=== PATIENT | female | born 1940 | race Caucasian/White ===

== ENCOUNTER 2019-09-03 02:18 | Emergency (ER) | payer MEDICARE, BC ==
[2019-09-03 02:24] VITALS: RESP 18; TEMP 97.6
[2019-09-03] MEDS ORDERED: FAMOTIDINE 20 MG/2 ML VIAL IV STA (02:37)
[2019-09-03] MEDS ORDERED: SODIUM CHLORIDE 0.9% 500 ML 500 ML IV STA (02:37)
--- NOTE | 2019-09-03 02:40 | ED ---
General Adult HPI - General Source: patient, EMS Mode of arrival: EMS Limitations: no limitations <Emma Kelsey - Last Filed: 09/03/19 04:29> <Dayanna Ledbetter - Last Filed: 09/03/19 05:26> - General Chief complaint: Chest Pain Stated complaint: Chest Pain Time Seen by Provider: 09/03/19 02:24 - History of Present Illness Initial comments: 78 year-old female patient presents to the emergency department today for evaluation of chest discomfort. Patient states she's been having vomiting and diarrhea since yesterday. Patient states this evening she developed some discomfort to her chest. Denies any shortness of breath. States she has been sweaty and clammy. States she is feeling dizzy and weak. Denies any hematochezia, melena, or hematemesis. Denies any significant abdominal pain. Denies fever or chills. Denies any recent travel or sick contacts. Has had tubal ligation to her abdomen but no other surgeries. She does have history of TIA and hypertension. Patient denies any recent rash, abdominal pain, back pain, numbness, tingling, dizziness, weakness, hematuria, dysuria, urinary urgency, urinary frequency, headache, visual changes, or any other complaints. (Emma Kelsey) Review of Systems ROS Other: All systems not noted in ROS Statement are negative. <Emma Kelsey - Last Filed: 09/03/19 04:29> ROS Other: All systems not noted in ROS Statement are negative. <Dayanna Ledbetter - Last Filed: 09/03/19 05:26> ROS Statement: Those systems with pertinent positive or pertinent negative responses have been documented in the HPI. Past Medical History Past Medical History: CVA/TIA, Hypertension Additional Past Medical History / Comment(s): "mini strokes" Past Surgical History: Hysterectomy Smoking Status: Never smoker Past Alcohol Use History: None Reported Past Drug Use History: None Reported <Emma Kelsey - Last Filed: 09/03/19 04:29> General Exam Limitations: no limitations General appearance: alert, in no apparent distress, other (This is a well-developed, well-nourished elderly female patient in no acute distress. Vital signs upon presentation are temperature 97.6F, pulse 94, respirations 18, blood pressure 106/74, pulse ox 100% on room air.) Eye exam: Present: normal appearance, PERRL, EOMI. Absent: scleral icterus, c onjunctival injection, periorbital swelling ENT exam: Present: normal exam, normal oropharynx, mucous membranes moist Respiratory exam: Present: normal lung sounds bilaterally. Absent: respiratory distress, wheezes, rales, rhonchi, stridor Cardiovascular Exam: Present: regular rate, normal rhythm, normal heart sounds. Absent: systolic murmur, diastolic murmur, rubs, gallop, clicks GI/Abdominal exam: Present: soft, normal bowel sounds. Absent: distended, tenderness, guarding, rebound, rigid Neurological exam: Present: alert, oriented X3, CN II-XII intact Psychiatric exam: Present: normal affect, normal mood Skin exam: Present: warm, dry, intact, normal color. Absent: rash <Emma Kelsey M - Last Filed: 09/03/19 04:29> Course Vital Signs 09/03/19 09/03/19 09/03/19 02:19 04:12 05:14 Temperature 97.6 F Pulse Rate 94 74 80 Respiratory 18 18 18 Rate Blood Pressure 106/74 109/73 126/67 O2 Sat by Pulse 100 100 98 Oximetry EKG Findings - EKG Comments: EKG Findings:: EKG obtained at 12 oh 29 shows normal sinus rhythm with a ventricular rate of 90, NC interval 148, QRS duration 94, QT 372, QTc 455. No evidence of ST elevation or depression. <Emma Kelsey M - Last Filed: 09/03/19 04:29> Medical Decision Making - Lab Data Result diagrams: 09/03/19 02:52 09/03/19 02:52 <Emma Kelsey - Last Filed: 09/03/19 04:29> - Lab Data Result diagrams: 09/03/19 02:52 09/03/19 02:52 <Dayanna Ledbetter - Last Filed: 09/03/19 05:26> - Medical Decision Making Patient was initially seen and evaluated by a Emma Kelsey [employer]. Patient had nausea and vomiting was somewhat hypotensive. After IV fluids patient's feeling much better she is ambulating independently around the emergency department with no symptoms. I discussed with patient options for observation for further management versus discharge home patient stated adamantly that she would be going home that she is feeling much better. (Dayanna Ledbetter) - Lab Data Lab Results 09/03/19 09/03/19 09/03/19 Range/Units 02:52 02:52 02:52 WBC 4.6 (3.8-10.6) k/uL RBC 4.89 (3.80-5.40) m/uL Hgb 15.1 (11.4-16.0) gm/dL Hct 44.8 (34.0-46.0) % MCV 91.5 (80.0-100.0) fL MCH 30.9 (25.0-35.0) pg MCHC 33.7 (31.0-37.0) g/dL RDW 12.9 (11.5-15.5) % Plt Count 284 (150-450) k/uL Neutrophils % 63 % Lymphocytes % 20 % Monocytes % 10 % Eosinophils % 4 % Basophils % 1 % Neutrophils # 2.9 (1.3-7.7) k/uL Lymphocytes # 0.9 L (1.0-4.8) k/uL Monocytes # 0.5 (0-1.0) k/uL Eosinophils # 0.2 (0-0.7) k/uL Basophils # 0.0 (0-0.2) k/uL PT 10.3 (9.0-12.0) sec INR 1.0 (<1.2) APTT 16.9 L (22.0-30.0) sec Sodium 140 (137-145) mmol/L Potassium 3.7 (3.5-5.1) mmol/L Chloride 110 H (98-107) mmol/L Carbon Dioxide 16 L (22-30) mmol/L Anion Gap 14 mmol/L BUN 45 H (7-17) mg/dL Creatinine 1.04 (0.52-1.04) mg/dL Est GFR (CKD-EPI)AfAm 61 (>60 ml/min/1.73 sqM) Est GFR (CKD-EPI)NonAf 53 (>60 ml/min/1.73 sqM) Glucose 159 H (74-99) mg/dL Calcium 11.0 H (8.4-10.2) mg/dL Magnesium 2.3 (1.6-2.3) mg/dL Total Bilirubin 0.8 (0.2-1.3) mg/dL AST 23 (14-36) U/L ALT 16 (4-34) U/L Alkaline Phosphatase 83 (38-126) U/L Troponin I (0.000-0.034) ng/mL Total Protein 8.2 (6.3-8.2) g/dL Albumin 5.1 H (3.5-5.0) g/dL Lipase 74 (23-300) U/L 09/03/19 Range/Units 02:52 WBC (3.8-10.6) k/uL RBC (3.80-5.40) m/uL Hgb (11.4-16.0) gm/dL Hct (34.0-46.0) % MCV (80.0-100.0) fL MCH (25.0-35.0) pg MCHC (31.0-37.0) g/dL RDW (11.5-15.5) % Plt Count (150-450) k/uL Neutrophils % % Lymphocytes % % Monocytes % % Eosinophils % % Basophils % % Neutrophils # (1.3-7.7) k/uL Lymphocytes # (1.0-4.8) k/uL Monocytes # (0-1.0) k/uL Eosinophils # (0-0.7) k/uL Basophils # (0-0.2) k/uL PT (9.0-12.0) sec INR (<1.2) APTT (22.0-30.0) sec Sodium (137-145) mmol/L Potassium (3.5-5.1) mmol/L Chloride (98-107) mmol/L Carbon Dioxide (22-30) mmol/L Anion Gap mmol/L BUN (7-17) mg/dL Creatinine (0.52-1.04) mg/dL Est GFR (CKD-EPI)AfAm (>60 ml/min/1.73 sqM) Est GFR (CKD-EPI)NonAf (>60 ml/min/1.73 sqM) Glucose (74-99) mg/dL Calcium (8.4-10.2) mg/dL Magnesium (1.6-2.3) mg/dL Total Bilirubin (0.2-1.3) mg/dL AST (14-36) U/L ALT (4-34) U/L Alkaline Phosphatase (38-126) U/L Troponin I <0.012 (0.000-0.034) ng/mL Total Protein (6.3-8.2) g/dL Albumin (3.5-5.0) g/dL Lipase (23-300) U/L Disposition Is patient prescribed a controlled substance at d/c from ED?: No <Emma Kelsey M - Last Filed: 09/03/19 04:29> Is patient prescribed a controlled substance at d/c from ED?: No <Dayanna Ledbetter - Last Filed: 09/03/19 05:26> Clinical Impression: Vomiting and diarrhea Disposition: HOME SELF-CARE Condition: Good Instructions (If sedation given, give patient instructions): Acute Nausea and Vomiting (ED), Acute Diarrhea (ED) Additional Instructions: Start with clear liquid diet and advance as tolerated. Take nausea medication as needed for continued symptoms. Return to the emergency department for any new, worsening, or concerning symptoms. Referrals: Nonstaff,Physician [REFERRING] - 1-2 days
[2019-09-03 03:02] LABS: Basophils % (A) 1 %; Eosinophils # (A) 0.2 k/uL (0-0.7); Eosinophils % (A) 4 %; HCT 44.8 % (34.0-46.0); HGB 15.1 gm/dL (11.4-16.0); Lymphocytes # (A) 0.9 k/uL (1.0-4.8); Lymphocytes % (A) 20 %; MCH 30.9 pg (25.0-35.0); MCHC 33.7 g/dL (31.0-37.0); MCV 91.5 fL (80.0-100.0); Mean Platelet Volume 7.6; Monocytes # (A) 0.5 k/uL (0-1.0); Monocytes % (A) 10 %; Neutrophils # (A) 2.9 k/uL (1.3-7.7); Neutrophils % (A) 63 %; Platelet Count 284 k/uL (150-450); RBC 4.89 m/uL (3.80-5.40); RDW 12.9 % (11.5-15.5); WBC 4.6 k/uL (3.8-10.6)
--- NOTE | 2019-09-03 03:02 | XR ---
EXAMINATION TYPE: XR chest 2V DATE OF EXAM: 09/03/2019 COMPARISON: NONE HISTORY: Chest pain TECHNIQUE: FINDINGS: Heart and mediastinum are normal. Lungs are clear of infiltrate. There are small scattered calcified pulmonary granulomata. There is spurring in the thoracic spine. Costophrenic angles are nakia ar. IMPRESSION: No active cardiopulmonary disease. Normal heart.
[2019-09-03 03:16] LABS: Prothrombin Time 10.3 sec (9.0-12.0)
[2019-09-03 03:18] LABS: Partial Thromboplastin Time 16.9 sec (22.0-30.0)
[2019-09-03 03:27] LABS: Albumin 5.1 g/dL (3.5-5.0); Magnesium 2.3 mg/dL (1.6-2.3); Potassium 3.7 mmol/L (3.5-5.1); Total Bilirubin 0.8 mg/dL (0.2-1.3); Total Protein 8.2 g/dL (6.3-8.2)
[2019-09-03] MEDS ORDERED: ONDANSETRON 4 MG/2 ML VIAL IVP STA (03:54)
[2019-09-03] MEDS ORDERED: SODIUM CHLORIDE 0.9% 1,000 ML IV ONE (03:54)
[2019-09-03] MEDS ORDERED: ONDANSETRON 4 MG ODT STARTER PACK 2 TAB BTL PO STA (04:29)
[2019-09-03] MEDS ORDERED: LOPERAMIDE 2 MG CAP PO STA (04:30)
[2019-09-03 05:14] VITALS: BP 126/67; PULSE 80
== END 2019-09-03 05:37 | disposition home or self-care (01) ==
LOC: EC 02:18
DX: R11.2 Nausea with vomiting, unspecified (principal); R19.7 Diarrhea, unspecified; R07.89 Other chest pain; R42 Dizziness and giddiness; R53.1 Weakness
CPT/HCPCS: 36415; 93005; 80053; 83690; 83735; 84484; 85025; 85610; 85730; 71046; 99285; 96374; 96375; 96361; J2405; S0119

== ENCOUNTER 2021-05-28 11:00 | Inpatient (IN) | payer MEDICARE, BC ==
[2021-05-28] MEDS ORDERED: SODIUM CHLORIDE 0.9% 500 ML 500 ML IV STA (11:32)
[2021-05-28 12:06] LABS: Basophils % (A) 0 %; Eosinophils # (A) 0.1 k/uL (0-0.7); Eosinophils % (A) 2 %; HCT 40.9 % (34.0-46.0); HGB 13.8 gm/dL (11.4-16.0); Lymphocytes % (A) 17 %; MCH 30.5 pg (25.0-35.0); MCHC 33.7 g/dL (31.0-37.0); MCV 90.8 fL (80.0-100.0); Mean Platelet Volume 7.3; Monocytes # (A) 0.3 k/uL (0-1.0); Monocytes % (A) 5 %; Neutrophils # (A) 4.4 k/uL (1.3-7.7); Neutrophils % (A) 74 %; Platelet Count 250 k/uL (150-450); RBC 4.51 m/uL (3.80-5.40); RDW 12.7 % (11.5-15.5)
[2021-05-28 12:20] LABS: Appearance,Urine Clear (Clear); Bilirubin,Urine Negative (Negative); Blood,Urine Negative (Negative); Color,Urine Light Yellow; Glucose,Urine (UA) Negative (Negative); Ketones,Urine Negative (Negative); Leukocyte Esterase,Urine Negative (Negative); Nitrite,Urine Negative (Negative); Protein,Urine Negative (Negative); Specific Gravity,Urine 1.007 (1.001-1.035); Urobilinogen,Urine <2.0 mg/dL (<2.0)
[2021-05-28 12:21] LABS: Albumin 4.3 g/dL (3.5-5.0); Calcium 9.9 mg/dL (8.4-10.2); Potassium 4.1 mmol/L (3.5-5.1); Total Bilirubin 0.6 mg/dL (0.2-1.3)
--- NOTE | 2021-05-28 12:24 | ED ---
General Adult HPI - General Chief complaint: Neuro Symptoms/Deficit Stated complaint: TIA Time Seen by Provider: 05/28/21 11:17 Source: patient, EMS Mode of arrival: EMS Limitations: no limitations - History of Present Illness Initial comments: 80-year-old female patient presents to the emergency department for evaluation after having a 2 hour episode of confusion and inability to speak. Patient states around 9:30 this morning she developed "wavy vision" and garbled speech. States she felt very confused and forgot how to use her phone, she was unable to call for help. States the episode lasted approximately 2 hours when symptoms started to clear and she was able to call an ambulance. Patient states that she has had symptoms similar to this in the past but never lasting longer than 20 minutes. States that first episode was approximately 6 years ago, she was diagnosed with TIA. Evaluated at [facility] in [place]. Patient states she has some remaining visual disturbance and feels like her speech is not completely normal. She states she had some tingling to the fingers on the left hand, this was a new symptom. She states she was still able to move her extremities like normal. She denies any chest pain or shortness of breath. Denies headache. States she did have some dizziness with this. States she was started on Plavix approximately a month ago for these episodes. Patient denies any recent rash, fever, chills, cough, abdominal pain, nausea, vomiting, diarrhea, constipation, back pain, hematuria, dysuria, urinary urgency, urinary frequency, or any other complaints. She was recently diagnosed with bilateral ear infection and UTI. Had to stop the antibiotic yesterday because of bilateral leg cramping and tightness. - Related Data Allergies Allergy/AdvReac Type Severity Reaction Status Date / Time Sulfa (Sulfonamide Allergy Rash/Hives Verified 05/28/21 11:08 Antibiotics) Review of Systems ROS Statement: Those systems with pertinent positive or pertinent negative responses have been documented in the HPI. ROS Other: All systems not noted in ROS Statement are negative. Past Medical History Past Medical History: CVA/TIA, Hypertension Additional Past Medical History / Comment(s): "mini strokes" Past Surgical History: Hysterectomy Past Alcohol Use History: None Reported Past Drug Use History: None Reported General Exam Limitations: no limitations General appearance: alert, in no apparent distress, other (This is a well- developed, well-nourished elderly female patient in no acute distress. Vital signs upon presentation are temperature 97.8F, pulse 72, respirations 18, blood pressure 177/90, pulse ox 98% on room air.) Eye exam: Present: normal appearance, PERRL, EOMI. Absent: scleral icterus, conjunctival injection, nystagmus, periorbital swelling ENT exam: Present: normal exam, normal oropharynx, mucous membranes moist Respiratory exam: Present: normal lung sounds bilaterally. Absent: respiratory distress, wheezes, rales, rhonchi, stridor Cardiovascular Exam: Present: regular rate, normal rhythm, normal heart sounds. Absent: systolic murmur, diastolic murmur, rubs, gallop, clicks GI/Abdominal exam: Present: soft, normal bowel sounds. Absent: distended, tenderness, guarding, rebound, rigid Neurological exam: Present: alert, oriented X3, CN II-XII intact, other (NIHHS 0) Expanded Speech: Present: fluid speech Cranial nerves: EOM's Intact: Normal, Tongue Deviation: Normal, Nystagmus: Normal, Facial Sensation: Normal Motor strength exam: RUE: 5, LUE: 5, RLE: 5, LLE: 5 Psychiatric exam: Present: normal affect, normal mood Skin exam: Present: warm, dry, intact, normal color. Absent: rash Course Vital Signs 05/28/21 11:02 Temperature 97.8 F Pulse Rate 72 Respiratory 18 Rate Blood Pressure 177/90 O2 Sat by Pulse 98 Oximetry Medical Decision Making - Medical Decision Making 80-year-old female patient with past medical history significant for hypertension and TIA presents to the emergency department today for evaluation after having a 2 hour episode of garbled speech, left hand tingling, and confusion. Patient symptoms had cleared by the time she arrived to the emergency department. NIH was 0. Labs reviewed and were unremarkable. CT brain showed chronic changes nothing acute. Chest x-ray negative. EKG was unremarkable. Patient symptoms are consistent with TIA. She'll be admitted to the hospital for further evaluation by neurology. I did discuss findings, results, and plan with the patient she is agreeable. Case discussed with my attending Dr. Suarez. - Lab Data Result diagrams: 05/28/21 11:56 05/28/21 11:56 Lab Results 05/28/21 05/28/2121 Range/Units 11:56 11:56 11:56 WBC 6.0 (3.8-10.6) k/uL RBC 4.51 (3.80-5.40) m/uL Hgb 13.8 (11.4-16.0) gm/dL Hct 40.9 (34.0-46.0) % MCV 90.8 (80.0-100.0) fL MCH 30.5 (25.0-35.0) pg MCHC 33.7 (31.0-37.0) g/dL RDW 12.7 (11.5-15.5) % Plt Count 250 (150-450) k/uL MPV 7.3 Neutrophils % 74 % Lymphocytes % 17 % Monocytes % 5 % Eosinophils % 2 % Basophils % 0 % Neutrophils # 4.4 (1.3-7.7) k/uL Lymphocytes # 1.0 (1.0-4.8) k/uL Monocytes # 0.3 (0-1.0) k/uL Eosinophils # 0.1 (0-0.7) k/uL Basophils # 0.0 (0-0.2) k/uL PT 11.0 (9.0-12.0) sec INR 1.0 (<1.2) APTT 22.1 (22.0-30.0) sec Sodium (137-145) mmol/L Potassium (3.5-5.1) mmol/L Chloride (98-107) mmol/L Carbon Dioxide (22-30) mmol/L Anion Gap mmol/L BUN (7-17) mg/dL Creatinine (0.52-1.04) mg/dL Est GFR (CKD-EPI)AfAm (>60 ml/min/1.73 sqM) Est GFR (CKD-EPI)NonAf (>60 ml/min/1.73 sqM) Glucose (74-99) mg/dL Plasma Lactic Acid Yimi (0.7-2.0) mmol/L Calcium (8.4-10.2) mg/dL Total Bilirubin (0.2-1.3) mg/dL AST (14-36) U/L ALT (4-34) U/L Alkaline Phosphatase (38-126) U/L Troponin I (0.000-0.034) ng/mL Total Protein (6.3-8.2) g/dL Albumin (3.5-5.0) g/dL Urine Color Light Yellow Urine Appearance Clear (Clear) Urine pH 7.0 (5.0-8.0) Ur Specific [place] 1.007 (1.001-1.035) Urine Protein Negative (Negative) Urine Glucose (UA) Negative (Negative) Urine Ketones Negative (Negative) Urine Blood Negative (Negative) Urine Nitrite Negative (Negative) Urine Bilirubin Negative (Negative) Urine Urobilinogen <2.0 (<2.0) mg/dL Ur Leukocyte Esterase Negative (Negative) 05/28/21 05/28/21 05/28/21 Range/Units 11:56 11:56 11:56 WBC (3.8-10.6) k/uL RBC (3.80-5.40) m/uL Hgb (11.4-16.0) gm/dL Hct (34.0-46.0) % MCV (80.0-100.0) fL MCH (25.0-35.0) pg MCHC (31.0-37.0) g/dL RDW (11.5-15.5) % Plt Count (150-450) k/uL MPV Neutrophils % % Lymphocytes % % Monocytes % % Eosinophils % % Basophils % % Neutrophils # (1.3-7.7) k/uL Lymphocytes # (1.0-4.8) k/uL Monocytes # (0-1.0) k/uL Eosinophils # (0-0.7) k/uL Basophils # (0-0.2) k/uL PT (9.0-12.0) sec INR (<1.2) APTT (22.0-30.0) sec Sodium 137 (137-145) mmol/L Potassium 4.1 (3.5-5.1) mmol/L Chloride 103 (98-107) mmol/L Carbon Dioxide 23 (22-30) mmol/L Anion Gap 11 mmol/L BUN 15 (7-17) mg/dL Creatinine 0.78 (0.52-1.04) mg/dL Est GFR (CKD-EPI)AfAm 85 (>60 ml/min/1.73 sqM) Est GFR (CKD-EPI)NonAf 73 (>60 ml/min/1.73 sqM) Glucose 106 H (74-99) mg/dL Plasma Lactic Acid Yimi 1.0 (0.7-2.0) mmol/L Calcium 9.9 (8.4-10.2) mg/dL Total Bilirubin 0.6 (0.2-1.3) mg/dL AST 24 (14-36) U/L ALT 17 (4-34) U/L Alkaline Phosphatase 87 (38-126) U/L Troponin I <0.012 (0.000-0.034) ng/mL Total Protein 7.0 (6.3-8.2) g/dL Albumin 4.3 (3.5-5.0) g/dL Urine Color Urine Appearance (Clear) Urine pH (5.0-8.0) Ur Specific [place] (1.001-1.035) Urine Protein (Negative) Urine Glucose (UA) (Negative) Urine Ketones (Negative) Urine Blood (Negative) Urine Nitrite (Negative) Urine Bilirubin (Negative) Urine Urobilinogen (<2.0) mg/dL Ur Leukocyte Esterase (Negative) - Radiology Data Radiology results: report reviewed, image reviewed CT brain without contrast was obtained. Report was reviewed in its entirety. Impression by Dr. Delong shows no acute intracranial hemorrhage or midline shift. There is midline diffuse cerebral atrophy and mild chronic small vessel ischemic change noted. Two-view x-ray of the chest is obtained. Report was reviewed in its entirety. Impression by Dr. Delong shows chronic changes and mild cardiomegaly without acute pulmonary process. Disposition Clinical Impression: TIA (transient ischemic attack) Disposition: ADMITTED IP TO THIS [facility] Condition: Serious Referrals: Kennedy De Anda MD [Primary Care Provider] - 1-2 days Decision to Admit Reason: Admit from EC Decision Date: 05/28/21 Decision Time: 13:26
[2021-05-28 12:26] LABS: Partial Thromboplastin Time 22.1 sec (22.0-30.0)
--- NOTE | 2021-05-28 12:28 | XR ---
EXAMINATION TYPE: XR chest 2V DATE OF EXAM: 05/28/2021 COMPARISON: Chest x-ray September 03, 2019 HISTORY: Altered mental status and weakness. TECHNIQUE: Frontal and lateral views of the chest are obtained. FINDINGS: There is chronic painful changes bilaterally without suspicious focal air space opacity, p leural effusion, or pneumothorax seen. The cardiac silhouette size is stable and mildly enlarged. Mu ltilevel spurring in thoracic spine redemonstrated. Overlying EKG leads Omni current study incidental ly noted. IMPRESSION: Chronic changes and mild cardiomegaly without acute pulmonary process.
--- NOTE | 2021-05-28 12:29 | CT ---
EXAMINATION TYPE: CT brain wo con DATE OF EXAM: 05/28/2021 HISTORY: History of TIA, Neuro deficit x [address] DLP: 1099.4 mGycm. Automated Exposure Control for Dose Reduction was Utilized. TECHNIQUE: CT scan of the head is performed without contrast. COMPARISON: None. FINDINGS: There is no acute intracranial hemorrhage or midline shift identified. There is mild diff use ventricular and sulcal prominence consistent with diffuse age-related cerebral atrophy. Hyperosto sis frontalis bilaterally. There is mild low-attenuation in the periventricular white matter consiste nt with chronic small vessel ischemic change. The globes are intact and the visualized sinuses are c lear. IMPRESSION: No acute intracranial hemorrhage or midline shift. There is mild diffuse cerebral atrop hy and mild chronic small vessel ischemic change noted.
[2021-05-28] MEDS ORDERED: NALOXONE 0.4 MG/ML 1 ML VIAL IV PRN (13:19)
[2021-05-28] MEDS ORDERED: polyethylene glycoL 3350 17 GM POWD.PACK PO PRN (14:13)
[2021-05-28] MEDS ORDERED: ALPRAZolam 0.25 MG TAB PO PRN (14:13)
[2021-05-28] MEDS ORDERED: CLOPIDOGREL 75 MG TAB PO STA (14:21)
[2021-05-28] MEDS ORDERED: LOSARTAN 50 MG TAB PO STA (14:24)
--- NOTE | 2021-05-28 14:42 | CT ---
EXAMINATION TYPE: CT angio head neck DATE OF EXAM: 05/28/2021 COMPARISON: None HISTORY: Weakness CT DLP: mGycm Automated exposure control for dose reduction was used. CONTRAST: The contrast was Isovue 65 mL. There are 3-D post processed images. Images obtained from the aortic arch to the vertex of the brain. FINDINGS: There is normal branching pattern of the great vessels on the aortic arch. There is arterial flow in both subclavian arteries. There is arterial flow in the common internal and external carotid arteries bilaterally. There is wide patency of the carotid artery bifurcations. There is arterial flow in bot h vertebral arteries. There is arterial flow in the vertebrobasilar artery system. There is no eviden ce of carotid or vertebral artery aneurysm or dissection. There is arterial flow in the anterior middle and posterior cerebral arteries. There is no evidence o f intracranial aneurysm or neovascularity. There is no mass effect. I see no evidence of intracranial hemodynamic stenosis. There is normal enhancement of the venous sinuses. IMPRESSION: Negative CT angiogram of the neck. Negative CT angiogram of the brain.
[2021-05-28] MEDS: ACETAMINOPHEN TAB 325 MG TAB PO PRN ×2 (14:53→22:02)
[2021-05-28] MEDS ORDERED: LEVOTHYROXINE 75 MCG TAB PO SCH (21:00)
[2021-05-29 00:10] VITALS: RESP 16
[2021-05-29] MEDS ORDERED: PANTOPRAZOLE 40 MG TABLET PO SCH (09:00)
[2021-05-29] MEDS ORDERED: ATORVASTATIN 10 MG TAB PO SCH (09:00)
[2021-05-29] MEDS ORDERED: LOSARTAN 50 MG TAB PO SCH (09:00)
[2021-05-29] MEDS ORDERED: PROPRANOLOL 20 MG TAB PO SCH (09:45)
--- NOTE | 2021-05-29 09:59 | P.CNNES ---
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 Patient states that the first time it happened was 5-6 years ago when she developed the zigzag lines in her vision, associated with difficulty speaking, couldn't read. She was taken to [facility] where she stayed overnight. They did "all kinds of tests" including MRI, EEG and all tests came back negative. Subsequently she started having these episodes occurring every 2 or 3 months, each time lasting for 20 minutes. She can always feels it coming on, when it always starts with appearance of zigzag lines in her vision, then she cannot read, sometime she can speak, sometimes she cannot. If she tries to speak "I am hungry", only some non-intelligible sounds, like "Aan Aan Aan". There is no facial droop. She does feel generalized weak, but no focal weakness. The episodes typically last for 20 minutes and then passes. Purnima goins was started on Plavix with her last episode about a few months ago. Patient states she had an MRI of the brain done about a month ago at outside facility, which was reportedly normal. Patient says that she had some headache now, but she has some cold and sinus issues. Patient called the ambulance and when they arrived, patient was alert and oriented 4. Her blood pressure was 172/88, pulse rate 72, saturation 98%, and blood sugar was 117. When patient arrived, her symptoms had completely resolved. Her blood pressure is still high when she arrived. At present she feels fine and wants to go home. Patient is a nonsmoker, does not drink. She has hypertension but denies diabetes. Patient denies any history of migraines. She has history of sinus headaches, which she used to get "all the time", but now has gone away. She denies any nausea vomiting light or noise sensitivity with those headaches. Review of Systems States she had recent ear infections bilaterally. Has chronic sinus issues off and on. Denies any focal numbness tingling weakness. No chest pain or abdominal pain nausea vomiting diarrhea. She does have some GERD. All other review of systems completely unremarkable. Past Medical History Past Medical History: CVA/TIA, Hypertension Additional Past Medical History / Comment(s): "mini strokes" History of Any Multi-Drug Resistant Organisms: None Reported Past Surgical History: Tubal Ligation Past Anesthesia/Blood Transfusion Reactions: No Reported Reaction Past Psychological History: Anxiety Smoking Status: Former smoker Past Alcohol Use History: None Reported Past Drug Use History: None Reported - Past Family History Mother Family Medical History: Hyperlipidemia, Hypertension Father Family Medical History: Renal Disease Additional Family Medical History / Comment(s): dialysis Medications and Allergies Home Medications Medication Instructions Recorded Confirmed Type ALPRAZolam [Xanax] 0.25 mg PO BID PRN 05/28/21 05/28/21 History Atorvastatin [Lipitor] 10 mg PO DAILY 05/28/21 05/28/21 History Clopidogrel [Plavix] 75 mg PO PC-LUNCH 05/28/21 05/28/21 History Levothyroxine Sodium [Synthroid] 75 mcg PO MOTUWETHFR@2100 05/28/21 05/28/21 History Levothyroxine Sodium [Synthroid] 150 mcg PO SUSA@2100 05/28/21 05/28/21 History Losartan Potassium 100 mg PO DAILY 05/28/21 05/28/21 History Pantoprazole [Protonix] 40 mg PO DAILY 05/28/21 05/28/21 History Polyethylene Glycol 3350 [Miralax] 17 gm PO DAILY PRN 05/28/21 05/28/21 History Propranolol [Inderal] 20 mg PO BID #60 tab 05/29/21 Rx Allergies Allergy/AdvReac Type Severity Reaction Status Date / Time Sulfa (Sulfonamide Allergy Rash/Hives Verified 05/28/21 13:26 Antibiotics) levofloxacin [From Levaquin] AdvReac Leg pain Verified 05/28/21 13:26 Physical Examination - Vital Signs Vital Signs: Vital Signs Temp Pulse Pulse Resp BP BP Pulse Ox 05/29/21 03:30 98.1 F 59 L 16 161/85 97 05/28/21 23:15 98.4 F 63 16 159/86 97 05/28/21 19:28 98.7 F 64 16 134/67 97 05/28/21 17:30 97.8 F 86 18 131/76 97 05/28/21 17:27 97.8 F 89 18 133/73 98 05/28/21 16:32 89 18 133/73 98 05/28/21 15:35 98 18 136/73 98 05/28/21 14:15 93 18 187/106 98 05/28/21 13:26 74 18 176/82 98 05/28/21 11:02 97.8 F 72 18 177/90 98 Intake and Output 05/28/21 05/29/21 05/29/21 22:59 06:59 14:59 Intake Total 240 Balance 240 Intake: Oral 240 Other: Voiding Method Toilet Toilet # Voids 1 1 Weight 67.132 kg 67.3 kg Patient is an elderly female, very pleasant, in no acute distress. Patient is alert awake oriented to time place and person. Speech and language functions are normal. Attention, concentration and fund of knowledge is adequate. No aphasia or dysarthria. Patient can name and repeat very well. On cranial examination, pupils are round and reacting to light, visual gross are full on confrontation, extraocular muscles are intact with no nystagmus. Face is symmetric, tongue protrudes to the midline. Palatal elevation and sensation normal, hearing and shoulder shrug normal, facial sensation normal. Shoulder shrug normal. On muscle strength testing, there is no pronator drift and the strength is normal in arms and legs distally and proximally. Deep tendon reflexes are 1+ to 2+ and plantars withdrawal bilaterally. Sensory to touch is equal with no neglect. Cerebellar function showed no ataxia for [id number] testing. No dysdiadochokinesia. Tone and bulk of muscles normal. Gait normal. On general examination, there is no carotid bruit or murmur, S1-S2 audible. Abdomen is soft nontender. Chest is clear. Peripheral pulses are present. No edema. Results - Laboratory Findings CBC and BMP: 05/28/21 11:56 05/28/21 11:56 Abnormal Lab Findings: Abnormal Labs 05/28/21 11:56 Glucose 106 H Assessment and Plan Assessment: * Recurrent, stereotypical episodes of seeing visual scotomas (zigzag patterns in the visual field), followed by difficulty seeing, talking lasting for around 20 minutes. Patient never had any history of migraines although does have history of sinus headaches in the past. These episodes are occurring every 2-3 months for last 5-6 years, therefore TIA appears very unlikely. 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 TIAs appear very unlikely. * Hypertension, not very well controlled * Hyperlipidemia Plan: * Patient has recurrent stereotypical symptoms, suggestive of possible acephalgic migraines, versus partial seizures versus TIA. Patient will be continued on Plavix 75 mg daily. * Patient had an EEG performed long time ago which was normal. I suggested repeating EEG, but patient declined. She wants to have it done as an outpatient. * Patient had a normal CTA of head and neck. * We will check 2-D echo to rule out PFO. * Telemetry monitoring so far showing sinus rhythm, with sinus bradycardia between 50-70. No other arrhythmia. * Fasting a.m. lipid panel was checked, shows cholesterol 192, LDL 96.4, HDL 56.2 and triglycerides 197. Continue statins. * Hemoglobin A1c was checked, 5.8 normal. * Patient will be started on Inderal 20 mg twice a day, which will help with her blood pressure as well as preventing migraines, and these are possible retinal/acephalgic migraine. * Patient was recommended to follow up with neurologist locally. She may benefit from prolonged EEG.
[2021-05-29 10:47] VITALS: TEMP 97.6
[2021-05-29 12:26] VITALS: BP 171/83; PULSE 54
[2021-05-29] MEDS ORDERED: CLOPIDOGREL 75 MG TAB PO SCH (13:30)
--- NOTE | 2021-05-29 15:48 | P.HPIM ---
History of Present Illness H&P Date: 05/29/21 HISTORY OF PRESENT ILLNESS This is a 80-year-old female patient of Masoud Garcia NP with past medical history of TIA, hypertension patient is complaining of difficulty with her vision, difficulty speaking, generalized weakness with episodes lasting about 20 minutes. She was recently started on Plavix regarding these episodes. She had an MRI done 1 month ago that she reports was normal. He came into the hospital and her symptoms have completely resolved by the time she arrived. She has been seen by neurology and has been cleared for discharge home. CAT scan of the brain revealed no acute intracranial hemorrhage or midline shift. There is mild diffuse cerebral atrophy and mild chronic small vessel ischemic change DT angiogram of the neck was negative, CT angiogram of the brain negative Chest x-ray reveals chronic changes and mild cardiomegaly without acute pulmonary process. EKG normal sinus rhythm with no acute ST changes. Echocardiogram reveals REVIEW OF SYSTEMS The time of evaluation: Constitutional: No fever, no chills, no night sweats. No weight change. No weakness, fatigue or lethargy. No daytime sleepiness. EENT: No headache. No blurred vision or double vision, no loss of vision. No loss of Hearing, no ringing in the ears, no dizziness. No nasal drainage or congestion. No epistaxis. No sore throat. Lungs: No shortness of breath, cough, no sputum production. No wheezing. Cardiovascular: No chest pain, no lower extremity edema. No palpitations. No paroxysmal nocturnal dyspnea. No orthopnea. No lightheadedness or dizziness. No syncopal episodes. Abdominal: No abdominal pain. No nausea, vomiting. No diarrhea. No constipation. No bloody or tarry stools.. No loss of appetite. Genitourinary: No dysuria, increased frequency, urgency. No urinary retention. Musculoskeletal: No myalgias. No muscle weakness, no gait dysfunction, no frequent falls. No back pain. No neck pain. Integumentary: No wounds, no lesions. No rash or pruritus. No unusual bruising. No change in hair or nails. Neurologic: No aphasia. No facial droop. No change in mentation. No head injury. No headache. No paralysis. No paresthesia. Psychiatric: No depression. No anxiety. No mood swings. Endocrine: No abnormal blood sugars. No weight change. No excessive sweating or thirst. No cold intolerance. SOCIAL HISTORY Lifelong nonsmoker, no alcohol use, marijuana use illicit drug use. FAMILY HISTORY Mother at age 94 from old age. Father at age 85 with history of end- stage renal disease on dialysis. Patient has 1 brother and she has had no contact with him for over 20 years. She has one sister that at age 26 in a motor vehicle accident. Patient has 2 children with no major medical problems. PHYSICAL EXAMINATION Gen: This is a 80-year-old female. She is resting in bed and appears to be comfortable and in no acute distress. HEENT: Head is atraumatic, normocephalic. Pupils equal, round. Sclerae is anicteric. NECK: Supple. No JVD. No lymphadenopathy. No thyromegaly. LUNGS: Clear to auscultation. No wheezes or rhonchi. No intercostal retractions. HEART: Regular rate and rhythm. No murmur. Bradycardic. ABDOMEN: Soft. Bowel sounds are present. No masses. No tenderness. EXTREMITIES: No pedal edema. No calf tenderness. NEUROLOGICAL: Patient is awake, alert and oriented x3. Cranial nerves 2 through 12 are grossly intact. Normal finger to nose testing. Strength equal 4/5 in upper and lower extremities. ASSESSMENT AND PLAN 1. 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 2. History of TIAs. 3. Hypertension. 4. Recent treatment for ear infection. 5. COVID-19 testing negative. Patient has been hospitalized during a pandemic. Patient will be admitted to the hospital for a minimum of 1 night stay. DISCHARGE PLAN Home DISCHARGE MEDICATIONS ALPRAZolam [Xanax] 0.25 mg PO BID PRN 05/28/21 [History] Atorvastatin [Lipitor] 10 mg PO DAILY 05/28/21 [History] Clopidogrel [Plavix] 75 mg PO PC-LUNCH 05/28/21 [History] Levothyroxine Sodium [Synthroid] 75 mcg PO MOTUWETHFR@2100 05/28/21 [History] Levothyroxine Sodium [Synthroid] 150 mcg PO SUSA@2100 05/28/21 [History] Losartan Potassium 100 mg PO DAILY 05/28/21 [History] Pantoprazole [Protonix] 40 mg PO DAILY 05/28/21 [History] Polyethylene Glycol 3350 [Miralax] 17 gm PO DAILY PRN 05/28/21 [History] Propranolol [Inderal] 20 mg PO BID #60 tab 05/29/21 [Rx] Impression and plan of care have been directed as dictated by the signing physician. Shannan Boss nurse practitioner acting as scribe for signing physician. Past Medical History Past Medical History: CVA/TIA, Hypertension Additional Past Medical History / Comment(s): "mini strokes" History of Any Multi-Drug Resistant Organisms: None Reported Past Surgical History: Tubal Ligation Past Anesthesia/Blood Transfusion Reactions: No Reported Reaction Past Psychological History: Anxiety Smoking Status: Former smoker Past Alcohol Use History: None Reported Past Drug Use History: None Reported - Past Family History Mother Family Medical History: Hyperlipidemia, Hypertension Father Family Medical History: Renal Disease Additional Family Medical History / Comment(s): dialysis Medications and Allergies Home Medications Medication Instructions Recorded Confirmed Type ALPRAZolam [Xanax] 0.25 mg PO BID PRN 05/28/21 05/28/21 History Atorvastatin [Lipitor] 10 mg PO DAILY 05/28/21 05/28/21 History Clopidogrel [Plavix] 75 mg PO PC-LUNCH 05/28/21 05/28/21 History Levothyroxine Sodium [Synthroid] 75 mcg PO MOTUWETHFR@2100 05/28/21 05/28/21 History Levothyroxine Sodium [Synthroid] 150 mcg PO SUSA@2100 05/28/21 05/28/21 History Losartan Potassium 100 mg PO DAILY 05/28/21 05/28/21 History Pantoprazole [Protonix] 40 mg PO DAILY 05/28/21 05/28/21 History Polyethylene Glycol 3350 [Miralax] 17 gm PO DAILY PRN 05/28/21 05/28/21 History Propranolol [Inderal] 20 mg PO BID #60 tab 05/29/21 Rx Allergies Allergy/AdvReac Type Severity Reaction Status Date / Time Sulfa (Sulfonamide Allergy Rash/Hives Verified 05/28/21 13:26 Antibiotics) levofloxacin [From Levaquin] AdvReac Leg pain Verified 05/28/21 13:26 Physical Exam Vitals: Vital Signs Temp Pulse Pulse Resp BP BP Pulse Ox 05/29/21 08:00 97.6 F 81 131/75 97 05/29/21 03:30 98.1 F 59 L 16 161/85 97 05/28/21 23:15 98.4 F 63 16 159/86 97 05/28/21 19:28 98.7 F 64 16 134/67 97 05/28/21 17:30 97.8 F 86 18 131/76 97 05/28/21 17:27 97.8 F 89 18 133/73 98 05/28/21 16:32 89 18 133/73 98 05/28/21 15:35 98 18 136/73 98 05/28/21 14:15 93 18 187/106 98 05/28/21 13:26 74 18 176/82 98 Intake and Output 05/28/21 05/29/21 05/29/21 22:59 06:59 14:59 Intake Total 240 Balance 240 Intake: Oral 240 Other: Voiding Method Toilet Toilet # Voids 1 1 1 Weight 67.132 kg 67.3 kg Results CBC & Chem 7: 05/28/21 11:56 05/28/21 11:56 Labs: Abnormal Lab Results - Last 24 Hours (Table) 05/28/21 Range/Units 11:56 Glucose 106 H (74-99) mg/dL Thrombosis Risk Factor Assmnt - Choose All That Apply Each Risk Factor Represents 3 Points: Age 75 years or older Thrombosis Risk Factor Assessment Total Risk Factor Score: 3 Thrombosis Risk Factor Assessment Level: Moderate Risk
[2021-05-29 16:01] LABS: Chol/HDL Ratio 3.42 Ratio; LDL Cholesterol,Calculated 96.4 mg/dL (0.0-131.0); VLDL Calculation 39.4 mg/dL (5.00-40.00)
[2021-05-29 16:02] LABS: HDL Cholesterol 56.2 mg/dL (40.00-60.00)
[2021-05-29] MEDS ORDERED: LEVOTHYROXINE 75 MCG TAB PO SCH (21:00)
== END 2021-05-29 13:02 | disposition home or self-care (01) | DRG 125 ==
LOC: EC 11:00 → 3SCARD 13:15
PROVIDERS: ADMIT Internal Medicine; ATTEND Internal Medicine
DX: H53.8 Other visual disturbances (principal); G40.109 Localization-related (focal) (partial) symptomatic epilepsy and epileptic syndromes with simple partial seizures, not intractable, without status epilepticus; G43.809 Other migraine, not intractable, without status migrainosus; R00.1 Bradycardia, unspecified; I10 Essential (primary) hypertension; R47.9 Unspecified speech disturbances; F41.9 Anxiety disorder, unspecified; Z20.822 Contact with and (suspected) exposure to COVID-19; Z79.890 Hormone replacement therapy; Z79.899 Other long term (current) drug therapy; Z86.73 Personal history of transient ischemic attack (TIA), and cerebral infarction without residual deficits; Z87.891 Personal history of nicotine dependence; Z90.710 Acquired absence of both cervix and uterus
CPT/HCPCS: 36415; 70450; 70496; 70498; 71046; 80053; 80061; 81003; 83036; 83605; 84484; 85025; 85610; 85730; 87635; 93005; 93306; 96360; 99285

== ENCOUNTER 2023-11-30 15:45 | Emergency (ER) | payer MEDICARE, BC ==
--- NOTE | 2023-11-30 15:54 | ED ---
General Adult HPI - General Chief complaint: Fall Stated complaint: Fall, head injury Time Seen by Provider: 11/30/23 15:54 Source: patient Mode of arrival: ambulatory Limitations: no limitations - History of Present Illness Initial comments: Patient presents to the ED evaluation for status post fall. Patient states that she was walking out of a store and looking at her [id number] ticket when she accidentally missed a step and fell forward off of a curb. Patient states that she hit her forehead and bilateral knees on the ground when she fell. Patient denies LOC. Patient is currently complaining of having a mild frontal headache and mild bilateral knee pain. Patient states that she was able to get up off the ground on her own, and she has been ambulatory since falling. Patient denies LOC/syncope. Patient reports being on Plavix. Patient denies any other injury or site of pain, focal numbness/weakness/neuro deficit, visual changes, speech difficulty, neck/back/upper extremity/hip pain, chest pain, dyspnea, dizziness, abdominal pain, nausea or vomiting, or any other symptoms or complaints. Patient states that she is unsure of her last tetanus shot. Priority 2 trauma was activated on patient's arrival to the ED secondary to the patient falling off of a curb and being on Plavix. - Related Data Home Medications Medication Instructions Recorded Confirmed ALPRAZolam [Xanax] 0.25 mg PO BID PRN 05/28/21 05/28/21 Atorvastatin [Lipitor] 10 mg PO DAILY 05/28/21 05/28/21 Clopidogrel [Plavix] 75 mg PO PC-LUNCH 05/28/21 05/28/21 Levothyroxine Sodium [Synthroid] 75 mcg PO MOTUWETHFR@2100 05/28/21 05/28/21 Levothyroxine Sodium [Synthroid] 150 mcg PO SUSA@2100 05/28/21 05/28/21 Losartan Potassium 100 mg PO DAILY 05/28/21 05/28/21 Pantoprazole [Protonix] 40 mg PO DAILY 05/28/21 05/28/21 polyethylene glycoL 3350 [Miralax] 17 gm PO DAILY PRN 05/28/21 05/28/21 Previous Rx's Medication Instructions Recorded Propranolol [Inderal] 20 mg PO BID #60 tab 05/29/21 Allergies Allergy/AdvReac Type Severity Reaction Status Date / Time Sulfa (Sulfonamide Allergy Rash/Hives Verified 05/28/21 13:26 Antibiotics) levofloxacin [From Levaquin] AdvReac Leg pain Verified 05/28/21 13:26 Review of Systems ROS Statement: Those systems with pertinent positive or pertinent negative responses have been documented in the HPI. ROS Other: All systems not noted in ROS Statement are negative. Past Medical History Past Medical History: CVA/TIA, Hypertension Additional Past Medical History / Comment(s): "mini strokes" History of Any Multi-Drug Resistant Organisms: None Reported Past Surgical History: Tubal Ligation Past Anesthesia/Blood Transfusion Reactions: No Reported Reaction Past Psychological History: Anxiety Smoking Status: Former smoker Past Alcohol Use History: None Reported Past Drug Use History: None Reported - Past Family History Mother Family Medical History: Hyperlipidemia, Hypertension Father Family Medical History: Renal Disease Additional Family Medical History / Comment(s): dialysis General Exam Limitations: no limitations General appearance: alert Head exam: Present: other (Ecchymosis and mild tenderness is noted to the patient's forehead; mild ecchymosis is noted over the patient's nasal bridge without any tenderness or deformity appreciated) Eye exam: Present: normal appearance, PERRL, EOMI ENT exam: Present: mucous membranes moist, TM's normal bilaterally Neck exam: Present: normal inspection, full ROM, other (Trachea is in midline; patient has no cervical step-off deformity or tenderness). Absent: tenderness Respiratory exam: Present: normal lung sounds bilaterally. Absent: respiratory distress, wheezes, rales, rhonchi, stridor, chest wall tenderness Cardiovascular Exam: Present: regular rate, normal rhythm, normal heart sounds, other (Normal radial and dorsalis pedis pulses bilaterally) GI/Abdominal exam: Present: soft. Absent: distended, tenderness, guarding Extremities exam: Present: full ROM, other (Pelvis is stable and nontender; patient has full range of motion at bilateral hips; bilateral anterior knee ecchymosis and mild tenderness is noted on exam; patient has full range of m otion at bilateral knees; superficial abrasions are noted over bilateral knees). Absent: pedal edema Back exam: Present: normal inspection. Absent: tenderness Neurological exam: Present: alert, oriented X3, CN II-XII intact. Absent: motor sensory deficit Psychiatric exam: Present: normal affect Skin exam: Present: warm, dry Course Vital Signs 11/30/23 11/30/23 11/30/23 15:47 16:53 17:41 Temperature 97.6 F Pulse Rate 80 76 81 Respiratory 17 16 18 Rate Blood Pressure 190/102 208/101 216/106 O2 Sat by Pulse 100 99 98 Oximetry - Reevaluation(s) Reevaluation #1: 11/30/23 17:30 Patient denies development of any new pain or symptoms while in the ED. Patient is aware of her negative imaging reports, and she feels comfortable being discharged home at this time. Patient states that her daughter will take her home from the ED today. Patient has been ambulatory in the ED without difficulty. Patient was counseled about head injuries and knee contusions/abrasions. She was clearly explained return and follow-up instructions, and she was instructed to follow-up closely with her primary care provider. She feels comfortable with this plan. Medical Decision Making - Medical Decision Making Was pt. sent in by a medical professional or institution (, PA, ASSOCIATE GENETICS PROFESSOR, urgent care, hospital, or alf...) When possible be specific @ -No Did you speak to anyone other than the patient for history (EMS, parent, family, police, friend...)? What history was obtained from this source @ -No Did you review nursing and triage notes (agree or disagree)? Why? @ -I reviewed and agree with nursing and triage notes Were old charts reviewed (outside hosp., previous admission, EMS record, old EKG, old radiological studies, urgent care reports/EKG's, alf records)? Report findings @ -No old charts were reviewed Differential Diagnosis (chest pain, altered mental status, abdominal pain women, abdominal pain men, vaginal bleeding, weakness, fever, dyspnea, syncope, headache, dizziness, GI bleed, back pain, seizure, CVA, palpatations, mental health, musculoskeletal)? @ -Fall, contusion, sprain, strain, fracture, intracranial hemorrhage, contusion, abrasion, concussion EKG interpreted by me (3pts min.). @ -None done X-rays interpreted by me (1pt min.). @ -Bilateral knee x-rays were reviewed myself and showed no acute traumatic injury. I agree with the radiologist's interpretation as above. CT interpreted by me (1pt min.). @ -Noncontrast head CT was reviewed myself and shows no acute intracranial abnormality. I agree with the radiologist's interpretation as above. U/S interpreted by me (1pt. min.). @ -None done What testing was considered but not performed or refused? (CT, X-rays, U/S, labs)? Why? @ -None What meds were considered but not given or refused? Why? @ -None Did you discuss the management of the patient with other professionals (professionals i.e. , PA, ASSOCIATE GENETICS PROFESSOR, lab, RT, psych nurse, clinical social work aide, molding machine tender, teacher, juvenile correctional officer, pillowcase maker)? Give summary @ -No Was smoking cessation discussed for >3mins.? @ -No Was critical care preformed (if so, how long)? @ -No Were there social determinants of health that impacted care today? How? (Homelessness, low income, unemployed, alcoholism, drug addiction, transportation, low edu. Level, literacy, decrease access to med. care, fpc, rehab)? @ -No Was there de-escalation of care discussed even if they declined (Discuss DNR or withdrawal of care, Hospice)? DNR status @ -No What co-morbidities impacted this encounter? (DM, HTN, Smoking, COPD, CAD, Cancer, CVA, ARF, Chemo, Hep., AIDS, mental health diagnosis, sleep apnea, morbid obesity)? @ -None Was patient admitted / discharged? Hospital course, mention meds given and route, prescriptions, significant lab abnormalities, going to OR and other pertinent info. @ -Patient denies development of any new pain or symptoms while in the ED. Patient's imaging studies are negative for traumatic findings. Will discharge patient home at this time. Patient to get a ride home from the ED today. Strict return instructions were provided. Patient feels comfortable with this plan. Undiagnosed new problem with uncertain prognosis? @ -No Drug Therapy requiring intensive monitoring for toxicity (Heparin, Nitro, Insulin, Cardizem)? @ -No Were any procedures done? @ -No Diagnosis/symptom? @ -Fall with head injury and bilateral knee contusions/abrasions Acute, or Chronic, or Acute on Chronic? @ -Acute Uncomplicated (without systemic symptoms) or Complicated (systemic symptoms)? @ -Default Side effects of treatment? @ -No Exacerbation, Progression, or Severe Exacerbation? @ -No Poses a threat to life or bodily function? How? (Chest pain, [place], [place], pneumonia, PE, COPD, DKA, ARF, appy, cholecystitis, CVA, Diverticulitis, Homicidal, Suicidal, threat to staff... and all critical care pts) @ -No - Radiology Data Noncontrast head CT: 1. No evidence of an acute traumatic intracranial injury. 2. Moderate generalized atrophy and mild chronic microvascular ischemic changes. Bilateral knee x-rays: No acute fracture or dislocation. (No chest or pelvis x-rays were performed due to the mechanism of the patient's trauma. Patient did not sustain any chest trauma, and she denies having any chest pain or dyspnea. Patient has been ambulatory since her fall, and she has no hip or pelvis pain or tenderness. Patient has full range of motion at bilateral hips. As such, I do not feel that chest or pelvis x-rays are indicated at this time.) Disposition Clinical Impression: Fall, Head injury, Knee contusion, Knee abrasion Disposition: HOME SELF-CARE Condition: Stable Instructions (If sedation given, give patient instructions): Head Injury (ED), Contusion in Adults (ED), Abrasion (ED), Knee Pain (ED), Fall Prevention (ED) Additional Instructions: Return to the ER immediately should you develop new or worsening pain or symptoms. Follow-up closely with your primary care provider. Is patient prescribed a controlled substance at d/c from ED?: No Referrals: Nancy Martinez [Primary Care Provider] - 1-2 days Time of Disposition: 17:35
[2023-11-30] MEDS: DIPH,PERTUS(ACELL)TETVAC-LF 0.5 ML VIAL IM ONE (16:29)
--- NOTE | 2023-11-30 17:00 | CT ---
EXAMINATION TYPE: CT brain wo con CT DLP: 1109.4 mGycm, Automated exposure control for dose reduction was used. DATE OF EXAM: 11/30/2023 4:29 PM COMPARISON: None. CLINICAL INDICATION:Female, 83 years old with history of fall, head injury, on plavix, Fall, Head inj ury, on plavix. TECHNIQUE: Brain: Axial CT images of the brain were obtained with coronal and sagittal reformats created and rev iewed. Contrast used: None. Oral contrast used: None. FINDINGS: Extra-axial spaces: No abnormal extra-axial fluid collections. Ventricular system: Ventricles appear dilated in proportion to the degree of cerebral atrophy. Cerebral parenchyma: No increased attenuation to suggest acute intraparenchymal hemorrhage. The gra y-white matter interface appears maintained. Moderate generalized brain atrophy. Scattered hypoatte nuating areas are seen within the cerebral white matter, nonspecific but most often seen with chronic microvascular ischemic changes; mild in degree. Cerebellum: No acute abnormality. Mass effect: No evidence of mass effect or midline shift. Intracranial vasculature: Atherosclerotic calcifications of the larger arteries near the skull base. Soft tissues: No acute or concerning abnormality. Visualized orbits: Orbital contents appear grossly intact. There has likely been previous lens surg shasta. Calvarium/osseous structures: No evidence of calvarial fracture. Benign hyperostosis frontalis noted. Paranasal sinuses and mastoid air cells: Clear. Other: There is mild S-shaped nasal septal deviation. Small mucous retention cyst or polyp suggested in the right maxillary. MRI is more sensitive for detecting acute processes such as infarct, and may be considered if clinica lly warranted. IMPRESSION: 1. No evidence of an acute traumatic intracranial injury. 2. Moderate generalized atrophy and mild chronic microvascular ischemic changes.
[2023-11-30 17:03] VITALS: TEMP 97.6
--- NOTE | 2023-11-30 17:42 | XR ---
EXAMINATION TYPE: XR knee complete bilateral DATE OF EXAM: 11/30/2023 4:20 PM CLINICAL INDICATION:Female, 83 years old with history of fall, knee injury; H COMPARISON: None. TECHNIQUE: XR knee complete bilateral; examined in Frontal, lateral and oblique projections. FINDINGS: Osseous mineralization appears appropriate. No evidence of destructive lesion or aggressive periostit is. No acute fracture or dislocation. Joint spaces appear maintained. Unremarkable soft tissues witho ut significant joint effusion or radiopaque foreign body seen. IMPRESSION: No acute fracture or dislocation.
[2023-11-30 18:15] VITALS: BP 216/106; PULSE 81; RESP 18
== END 2023-11-30 17:43 | disposition home or self-care (01) ==
LOC: EC 15:45
DX: S00.83XA Contusion of other part of head, initial encounter (principal); S80.02XA Contusion of left knee, initial encounter; S80.01XA Contusion of right knee, initial encounter; I67.82 Cerebral ischemia; Z23 Encounter for immunization; Z87.891 Personal history of nicotine dependence; Z86.73 Personal history of transient ischemic attack (TIA), and cerebral infarction without residual deficits; Z88.2 Allergy status to sulfonamides; Z88.1 Allergy status to other antibiotic agents; W10.9XXA Fall (on) (from) unspecified stairs and steps, initial encounter; Y92.512 Supermarket, store or market as the place of occurrence of the external cause; Y93.01 Activity, walking, marching and hiking
CPT/HCPCS: 70450; 90471; 90715; 99284

== ENCOUNTER 2024-04-28 14:33 | Emergency (ER) | payer MEDICARE, BC ==
[2024-04-28 14:58] LABS: Glucose,Whole Blood 147 mg/dL (70-110)
--- NOTE | 2024-04-28 14:59 | ED ---
Recheck HPI - General Source: patient, RN notes reviewed Mode of arrival: ambulatory Limitations: no limitations <Akiko Garcia - Last Filed: 04/28/24 15:04> - General Source: patient, RN notes reviewed Mode of arrival: ambulatory Limitations: no limitations <Beverly Leon - Last Filed: 04/29/24 00:07> - General Chief Complaint: Recheck/Abnormal Lab/Rx Stated Complaint: high blood sugar Time Seen by Provider: 04/28/24 14:59 - History of Present Illness Initial Comments: Quick note: 83-year-old female presented to the ER with a chief complaint of hyperglycemia. Patient states she took her blood glucose close at home was 160 she used her daughter's machine. She states her blood pressure was also elevated systolic 168. Patient was told that Dr. Pompa to come to the ER for evaluation as she states she was feeling dizzy. She states she is always dizzy. She does state last week she was having a migraine or TIA. Patient denies any chest pain or shortness of breath. (Akiko Garcia) This is an 83-year-old female who presents to the emergency department for miguel rns of elevated blood sugar and blood pressure. States that she has been "borderline diabetic" for years. Her daughter is diabetic and checks her blood sugar at home. States that her daughter checked her sugar and it has been very elevated over the last couple of days. Today her sugar was in the 500s-600s. Her blood pressure was also in the 160s systolically. Additionally, she had reported feeling dizzy, and when she told this to her primary care provider, their office advised she come to the emergency department for further evaluation. Additionally, she has had episodes in the past that may either be attributed to a migraine or a TIA, 1 provider told her one thing and another told her the other. These episodes present as difficulty speaking and thinking lasting for anywhere from 20 minutes to an hour. She had an episode last week as well. Additionally, states that she has had problems with dizziness for the last 3-months that tend to occur intermittently. These make it somewhat difficult for her to ambulate. Would not describe this as room spinning sensation. (Beverly Leon) - Related Data Home Medications Medication Instructions Recorded Confirmed Atorvastatin [Lipitor] 10 mg PO DAILY@1700 05/28/21 04/28/24 Clopidogrel [Plavix] 75 mg PO DAILY@1100 05/28/21 04/28/24 Levothyroxine Sodium [Synthroid] 75 mcg PO MOTUWETHFR@0100 05/28/21 04/28/24 Levothyroxine Sodium [Synthroid] 150 mcg PO SUSA@0100 05/28/21 04/28/24 Losartan Potassium 100 mg PO DAILY@1400 05/28/21 04/28/24 Pantoprazole [Protonix] 40 mg PO DAILY@0700 05/28/21 04/28/24 polyethylene glycoL 3350 [Miralax] 17 gm PO DAILY PRN 05/28/21 04/28/24 Acetaminophen Tab [Tylenol Tab] 500 mg PO Q6HR PRN 04/28/24 04/28/24 Hydrocortisone Cream 1 applic TOPICAL BID PRN 04/28/24 04/28/24 [Hydrocortisone 2.5% Cream] Mupirocin 2% Oint [Bactroban 2% 1 applic TOPICAL DAILY PRN 04/28/24 04/28/24 Oint] Nystatin 100,000 Unit/gm Powd 1 applic TOPICAL TID PRN 04/28/24 04/28/24 [Mycostatin Powder] Simethicone [Gas-X] 125 mg PO BID PRN 04/28/24 04/28/24 Allergies Allergy/AdvReac Type Severity Reaction Status Date / Time Sulfa (Sulfonamide Allergy Rash/Hives Verified 04/28/24 19:13 Antibiotics) levofloxacin [From Levaquin] AdvReac Leg pain Verified 04/28/24 19:13 Review of Systems ROS Other: All systems not noted in ROS Statement are negative. <Akiko Garcia - Last Filed: 04/28/24 15:04> ROS Other: All systems not noted in ROS Statement are negative. <Beverly Leon - Last Filed: 04/29/24 00:07> ROS Statement: Those systems with pertinent positive or pertinent negative responses have been documented in the HPI. Past Medical History Past Medical History: CVA/TIA, Hypertension Additional Past Medical History / Comment(s): "mini strokes" History of Any Multi-Drug Resistant Organisms: None Reported Past Surgical History: Tubal Ligation Past Anesthesia/Blood Transfusion Reactions: No Reported Reaction Past Psychological History: Anxiety Smoking Status: Former smoker Past Alcohol Use History: None Reported Past Drug Use History: None Reported - Past Family History Mother Family Medical History: Hyperlipidemia, Hypertension Father Family Medical History: Renal Disease Additional Family Medical History / Comment(s): dialysis <Akiko Garcia - Last Filed: 04/28/24 15:04> General Exam Limitations: no limitations <Akiko Garcia - Last Filed: 04/28/24 15:04> Limitations: no limitations General appearance: alert, in no apparent distress Head exam: Present: atraumatic, normocephalic, normal inspection Respiratory exam: Present: normal lung sounds bilaterally. Absent: respiratory distress, wheezes, rales, rhonchi, stridor Cardiovascular Exam: Present: regular rate, normal rhythm, normal heart sounds. Absent: systolic murmur, diastolic murmur, rubs, gallop, clicks Neurological exam: Present: alert, oriented X3, CN II-XII intact Psychiatric exam: Present: normal affect, normal mood Skin exam: Present: warm, dry, intact, normal color. Absent: rash <Beverly Leon - Last Filed: 04/29/24 00:07> - General Exam Comments Initial Comments: Visual Physical Exam Vital signs reviewed General: Well-appearing, nontoxic, no acute distress. Head: Normocephalic, atraumatic Eyes: PERRLA, EOMI ENT: Airway patent Chest: Nonlabored breathing Skin: No visual rash, normal skin tone Neuro: Alert and oriented 3 Musculoskeletal: No gross abnormalities (Akiko Garcia) Course Vital Signs 04/28/24 04/28/24 04/28/24 14:53 17:39 18:26 Temperature 98.1 F 98.2 F Pulse Rate 82 89 80 Respiratory 20 18 18 Rate Blood Pressure 125/77 179/103 194/96 O2 Sat by Pulse 98 99 100 Oximetry 04/28/24 04/28/24 19:00 19:45 Temperature 98.4 F 98.1 F Pulse Rate 84 Respiratory 16 Rate Blood Pressure 170/95 O2 Sat by Pulse 100 Oximetry Medical Decision Making <Akiko Garcia - Last Filed: 04/28/24 15:04> - Lab Data Result diagrams: 04/28/24 15:50 04/28/24 15:50 - Radiology Data Radiology results: report reviewed, image reviewed <Beverly Leon - Last Filed: 04/29/24 00:07> - Medical Decision Making I performed the quick note portion of this chart. Electronically signed by Akiko Garcia PA-C (Akiko Garcai) This is an 83 year old female who presents to the emergency department for hyperglycemia and dizziness. Was pt. sent in by a medical professional or institution? @ -Her PCP Did you speak to anyone other than the patient for history? @ -No Did you review nursing and triage notes? @ -Yes, and I agree, it is accurate with regards to the patient's symptoms. Were old charts reviewed? @ -No Differential Diagnosis? @ -Differential Dizziness: Benign paroxysmal positional Vertigo, Meniere's disease, otitis media, acoustic neuroma, vertebrobasilar insufficiency, cerebellar stroke, encephalitis, hypovolemic, arrhythmia, coronary artery syndrome, anemia, this is not meant to be an all-inclusive list EKG interpreted by me (3pts min.)? @ -EKG interpreted by me demonstrating the following: Sinus rhythm. Ventricular rate 76 bpm, MS interval 142 ms, QRS duration 92 ms. X-rays interpreted by me (1pt min.)? @ -Not obtained CT interpreted by me (1pt min.)? @ -CT scan of the brain obtained. My interpretation identifies no evidence of an acute intracranial hemorrhage. U/S interpreted by me (1pt. min.)? @ -Not obtained What testing was considered but not performed? (CT, X-rays, U/S, labs)? Why? @ -None What meds were considered but not given? Why? @ -None Did you discuss the management of the patient with other professionals? @ -No Did you reconcile home meds? @ -No Was smoking cessation discussed for >3mins.? @ -No Was critical care preformed (if so, how long)? @ -No Were there social determinants of health that impacted care today? How? (Homelessness, low income, unemployed, alcoholism, drug addiction, transp ortation, low edu. Level, literacy, decrease access to med. care, [facility], rehab)? @ -No Was there de-escalation of care discussed even if they declined? (Discuss DNR or withdrawal of care, Hospice)? @ -No What co-morbidities impacted this encounter? (DM, HTN, Smoking, COPD, CAD, Cancer, CVA, Hep., AIDS, mental health diagnosis, sleep apnea, morbid obesity)? @ -HTN Was patient admitted / discharged? @ -Discharged. Lab work demonstrates mild hyponatremia with a sodium of 128 and was otherwise unremarkable. Blood sugar was well-controlled while in the emergency department. Urinalysis negative for signs of infection. Her BP did have some levels that were elevated, but not to the point of requiring inte rvention on our part in the emergency department. It is possible that her daughter's blood sugar monitor is not accurate, as it would be very unlikely that her sugars are in the 500s or 600s, given the current values. Given the dizziness with migraine/TIA episode a few weeks ago, we did obtain a CT scan of the brain, which did not reveal any acute process. We discussed having her continue to check her blood sugar and blood pressure at home and keep a log of these values to review with her primary care provider and we also discussed following up in the next couple of days for reevaluation of symptoms. Patient discharged home in stable condition. Case discussed with ED attending Dr. Fidelina dean. Return precautions reviewed in depth, the patient is instructed to return to the emergency department with any new, worsening, or concerning symptoms. Patient verbalized understanding. Undiagnosed new problem with uncertain prognosis? @ -None Drug Therapy requiring intensive monitoring for toxicity (Heparin, Nitro, Insulin, Cardizem)? @ -None Were any procedures done? @ -None Diagnosis/symptom? @ -Hypertension, dizziness Acute, or Chronic, or Acute on Chronic? @ -Chronic Uncomplicated (without systemic symptoms) or Complicated (systemic symptoms)? @ -Complicated Side effects of treatment? @ -None Exacerbation, Progression, or Severe Exacerbation] @ -Stable Poses a threat to life or bodily function? @ -Not at this time (Beverly Leon) - Lab Data Lab Results 04/28/24 04/28/24 04/28/24 Range/Units 14:56 15:50 15:50 WBC 6.9 (3.8-10.6) k/uL RBC 4.58 (3.80-5.40) m/uL Hgb 13.9 (11.4-16.0) gm/dL Hct 40.1 (34.0-46.0) % MCV 87.6 (80.0-100.0) fL MCH 30.3 (25.0-35.0) pg MCHC 34.6 (31.0-37.0) g/dL RDW 12.7 (11.5-15.5) % Plt Count 259 (150-450) k/uL MPV 7.1 Neutrophils % 73 % Lymphocytes % 15 % Monocytes % 7 % Eosinophils % 3 % Basophils % 1 % Neutrophils # 5.0 (1.3-7.7) k/uL Lymphocytes # 1.0 (1.0-4.8) k/uL Monocytes # 0.5 (0-1.0) k/uL Eosinophils # 0.2 (0-0.7) k/uL Basophils # 0.1 (0-0.2) k/uL Sodium 128 L (137-145) mmol/L Potassium 4.5 (3.5-5.1) mmol/L Chloride 98 (98-107) mmol/L Carbon Dioxide 22 (22-30) mmol/L Anion Gap 8 mmol/L BUN 19 H (7-17) mg/dL Creatinine 0.77 (0.52-1.04) mg/dL Est GFR (CKD-EPI)AfAm 84 (>60 ml/min/1.73 sqM) Est GFR (CKD-EPI)NonAf 73 (>60 ml/min/1.73 sqM) Glucose 137 H (74-99) mg/dL POC Glucose (mg/dL) 147 H (70-110) mg/dL POC Glu [employer]acher ID Fiore, Lia Calcium 9.8 (8.4-10.2) mg/dL Total Bilirubin 1.2 (0.2-1.3) mg/dL AST 30 (14-36) U/L ALT 15 (4-34) U/L Alkaline Phosphatase 91 (38-126) U/L Total Protein 7.3 (6.3-8.2) g/dL Albumin 4.7 (3.5-5.0) g/dL Urine Color Urine Appearance (Clear) Urine pH (5.0-8.0) Ur Specific [place] (1.001-1.035) Urine Protein (Negative) Urine Glucose (UA) (Negative) Urine Ketones (Negative) Urine Blood (Negative) Urine Nitrite (Negative) Urine Bilirubin (Negative) Urine Urobilinogen (<2.0) mg/dL Ur Leukocyte Esterase (Negative) Urine RBC (0-5) /hpf Urine WBC (0-5) /hpf Ur Squamous Epith Cells (0-4) /hpf Urine Bacteria (None) /hpf Hyaline Casts (0-2) /lpf Urine Mucus (None) /hpf 04/28/24 04/28/24 Range/Units 17:37 18:22 WBC (3.8-10.6) k/uL RBC (3.80-5.40) m/uL Hgb (11.4-16.0) gm/dL Hct (34.0-46.0) % MCV (80.0-100.0) fL MCH (25.0-35.0) pg MCHC (31.0-37.0) g/dL RDW (11.5-15.5) % Plt Count (150-450) k/uL MPV Neutrophils % % Lymphocytes % % Monocytes % % Eosinophils % % Basophils % % Neutrophils # (1.3-7.7) k/uL Lymphocytes # (1.0-4.8) k/uL Monocytes # (0-1.0) k/uL Eosinophils # (0-0.7) k/uL Basophils # (0-0.2) k/uL Sodium (137-145) mmol/L Potassium (3.5-5.1) mmol/L Chloride (98-107) mmol/L Carbon Dioxide (22-30) mmol/L Anion Gap mmol/L BUN (7-17) mg/dL Creatinine (0.52-1.04) mg/dL Est GFR (CKD-EPI)AfAm (>60 ml/min/1.73 sqM) Est GFR (CKD-EPI)NonAf (>60 ml/min/1.73 sqM) Glucose (74-99) mg/dL POC Glucose (mg/dL) 97 (70-110) mg/dL POC Glu [employer] Bleacher ID Vashti Mcginnis Calcium (8.4-10.2) mg/dL Total Bilirubin (0.2-1.3) mg/dL AST (14-36) U/L ALT (4-34) U/L Alkaline Phosphatase (38-126) U/L Total Protein (6.3-8.2) g/dL Albumin (3.5-5.0) g/dL Urine Color Colorless Urine Appearance Clear (Clear) Urine pH 6.0 (5.0-8.0) Ur Specific [place] 1.008 (1.001-1.035) Urine Protein Negative (Negative) Urine Glucose (UA) Negative (Negative) Urine Ketones Negative (Negative) Urine Blood Negative (Negative) Urine Nitrite Negative (Negative) Urine Bilirubin Negative (Negative) Urine Urobilinogen <2.0 (<2.0) mg/dL Ur Leukocyte Esterase Small H (Negative) Urine RBC 1 (0-5) /hpf Urine WBC 4 (0-5) /hpf Ur Squamous Epith Cells <1 (0-4) /hpf Urine Bacteria Rare H (None) /hpf Hyaline Casts 1 (0-2) /lpf Urine Mucus Rare H (None) /hpf Disposition <Akiko Garcia - Last Filed: 04/28/24 15:04> Is patient prescribed a controlled substance at d/c from ED?: No Time of Disposition: 19:22 <Beverly Leon - Last Filed: 04/29/24 00:07> Clinical Impression: Hypertension, Dizziness Disposition: HOME SELF-CARE Instructions (If sedation given, give patient instructions): Dizziness (ED) Additional Instructions: Return to the emergency department with any new, worsening, or concerning symptoms. Continue to monitor your blood sugar and blood pressure at home and keep a log of these values. Follow up with your primary care provider in 1-2 days. Referrals: Bruce Pompa MD [Primary Care Provider] - 1-2 days
[2024-04-28 15:59] LABS: Basophils # (A) 0.1 k/uL (0-0.2); Basophils % (A) 1 %; Eosinophils # (A) 0.2 k/uL (0-0.7); Eosinophils % (A) 3 %; HCT 40.1 % (34.0-46.0); HGB 13.9 gm/dL (11.4-16.0); Lymphocytes % (A) 15 %; MCH 30.3 pg (25.0-35.0); MCHC 34.6 g/dL (31.0-37.0); MCV 87.6 fL (80.0-100.0); Mean Platelet Volume 7.1; Monocytes # (A) 0.5 k/uL (0-1.0); Monocytes % (A) 7 %; Neutrophils % (A) 73 %; Platelet Count 259 k/uL (150-450); RBC 4.58 m/uL (3.80-5.40); RDW 12.7 % (11.5-15.5); WBC 6.9 k/uL (3.8-10.6)
[2024-04-28 16:09] LABS: ALT 15 U/L (4-34); AST 30 U/L (14-36); African American GFR (CKD) 84 (>60 ml/min/1.73 sqM); Albumin 4.7 g/dL (3.5-5.0); Alkaline Phosphatase 91 U/L (38-126); Anion Gap 8 mmol/L; Blood Urea Nitrogen 19 mg/dL (7-17); Calcium 9.8 mg/dL (8.4-10.2); Carbon Dioxide 22 mmol/L (22-30); Chloride 98 mmol/L (98-107); Glucose 137 mg/dL (74-99); Non-African American GFR(CKD) 73 (>60 ml/min/1.73 sqM); Potassium 4.5 mmol/L (3.5-5.1); Sodium 128 mmol/L (137-145); Total Bilirubin 1.2 mg/dL (0.2-1.3); Total Protein 7.3 g/dL (6.3-8.2)
[2024-04-28] MEDS: SODIUM CHLORIDE 0.9% 1,000 ML IV STA (17:49)
[2024-04-28 17:55] LABS: Appearance,Urine Clear (Clear); Bacteria,Urine Rare /hpf; Bilirubin,Urine Negative (Negative); Blood,Urine Negative (Negative); Color,Urine Colorless; Glucose,Urine (UA) Negative (Negative); Hyaline Casts,Urine 1 /lpf (0-2); Ketones,Urine Negative (Negative); Leukocyte Esterase,Urine Small (Negative); Mucus,Urine Rare /hpf; Nitrite,Urine Negative (Negative); Protein,Urine Negative (Negative); RBC,Urine 1 /hpf (0-5); Specific Gravity,Urine 1.008 (1.001-1.035); Squamous Epithelial Cell,Urine <1 /hpf (0-4); Urobilinogen,Urine <2.0 mg/dL (<2.0); WBC,Urine 4 /hpf (0-5)
[2024-04-28 18:24] LABS: Glucose,Whole Blood 97 mg/dL (70-110)
--- NOTE | 2024-04-28 19:06 | CT ---
EXAMINATION TYPE: CT brain wo con CT DLP: 1103.6 mGycm, Automated exposure control for dose reduction was used. DATE OF EXAM: 04/28/2024 6:40 PM COMPARISON: 11/30/2023. CLINICAL INDICATION: Female, 83 years old with history of Dizziness, dizziness TECHNIQUE: Brain: Axial CT images of the brain were obtained with coronal and sagittal reformats created and rev iewed. Contrast used: None. Oral contrast used: None. FINDINGS: Brain: Extra-axial spaces: No abnormal extra-axial fluid collections. Ventricular system: Dilatation in proportion to cerebral atrophy. Cerebral parenchyma: Cerebral atrophy. No acute intraparenchymal hemorrhage or mass effect. The barajas -white junction is well differentiated. Scattered hypoattenuating areas are seen within the white mat ter. Cerebellum: Unremarkable. Mass effect: No evidence of midline shift. Intracranial vasculature: Atherosclerotic calcifications of the intracranial vessels. Soft tissues: Normal. Calvarium/osseous structures: No depressed skull fracture. Benign hyperostosis frontalis noted. Paranasal sinuses and mastoid air cells: Mild scattered paranasal sinus disease. Visualized orbits: Bilateral aphakia IMPRESSION: 1. No acute intracranial process. 2. Nonspecific white matter changes, likely secondary to chronic small vessel ischemic disease.
[2024-04-28 19:29] VITALS: BP 170/95; PULSE 84; RESP 16
[2024-04-28 19:46] VITALS: TEMP 98.1
== END 2024-04-28 19:46 | disposition home or self-care (01) ==
LOC: EC 14:33
DX: R73.9 Hyperglycemia, unspecified
CPT/HCPCS: 36415; 70450; 80053; 81001; 83036; 85025; 93005; 96360; 99285

== ENCOUNTER 2025-01-05 17:58 | Emergency (ER) | payer MEDICARE, BC ==
[2025-01-05 18:06] VITALS: TEMP 97.5
--- NOTE | 2025-01-05 19:03 | XR ---
EXAMINATION TYPE: XR chest 2V DATE OF EXAM: 01/05/2025 6:59 PM COMPARISON: Chest radiographs from 05/28/2021 TECHNIQUE: XR chest 2V Frontal and lateral views of the chest. CLINICAL INDICATION:Female, 84 years old with history of difficulty breathing; FINDINGS: Lungs/Pleura: There is no evidence of pleural effusion, focal consolidation, or pneumothorax. Chroni c senescent parenchymal change. Pulmonary vascularity: Unremarkable. Heart/mediastinum: Cardiomediastinal silhouette is unremarkable. Musculoskeletal: Multiple level degenerative disc disease changes seen throughout the spine. IMPRESSION: No acute cardiopulmonary disease/process. [facility], , 01/05/2025 7:01 PM
[2025-01-05 19:04] LABS: Basophils # (A) 0.03 10*3/uL (0.00-0.10); Basophils % (A) 0.2 %; Eosinophils # (A) 1.06 10*3/uL (0.04-0.35); Eosinophils % (A) 8.6 %; HCT 35.1 % (37.2-46.3); Lymphocytes # (A) 0.46 10*3/uL (0.90-5.00); Lymphocytes % (A) 3.7 %; MCH 29.5 pg (27.0-32.0); MCHC 34.2 g/dL (32.0-37.0); MCV 86.2 fL (80.0-97.0); Monocytes # (A) 0.54 10*3/uL (0.20-1.00); Monocytes % (A) 4.4 %; Neutrophils # (A) 10.27 10*3/uL (1.80-7.70); Neutrophils % (A) 82.9 %; Platelet Count 314 10*3/uL (140-440); RBC 4.07 10*6/uL (4.10-5.20); RDW 13.5 % (11.5-14.5); WBC 12.38 10*3/uL (4.50-10.00)
--- NOTE | 2025-01-05 19:15 | ED ---
General Adult HPI - General Chief complaint: Shortness of Breath Stated complaint: CAROL ANN Time Seen by Provider: 01/05/25 18:00 Source: patient, RN notes reviewed, old records reviewed Mode of arrival: ambulatory Limitations: no limitations - History of Present Illness Initial comments: This is an 84-year-old female who presents to the emergency department stating that she has been short of breath over the last couple days she has had some shortness of breath of the last few months but is much worse over the last couple days particularly when she ambulates. Patient also states she has some chest discomfort when she moves around. Patient does complain of a dry cough but no fever no sputum production. Patient denies any palpitations. Patient has any abdominal pain. Patient has any swelling to the legs or calf tenderness. - Related Data Home Medications Medication Instructions Recorded Confirmed Atorvastatin [Lipitor] 10 mg PO DAILY@1700 05/28/21 04/28/24 Clopidogrel [Plavix] 75 mg PO DAILY@1100 05/28/21 04/28/24 Levothyroxine Sodium [Synthroid] 75 mcg PO MOTUWETHFR@0100 05/28/21 04/28/24 Levothyroxine Sodium [Synthroid] 150 mcg PO SUSA@0100 05/28/21 04/28/24 Losartan Potassium 100 mg PO DAILY@1400 05/28/21 04/28/24 Pantoprazole [Protonix] 40 mg PO DAILY@0700 05/28/21 04/28/24 polyethylene glycoL 3350 [Miralax] 17 gm PO DAILY PRN 05/28/21 04/28/24 Acetaminophen Tab [Tylenol Tab] 500 mg PO Q6HR PRN 04/28/24 04/28/24 Hydrocortisone Cream 1 applic TOPICAL BID PRN 04/28/24 04/28/24 [Hydrocortisone 2.5% Cream] Mupirocin 2% Oint [Bactroban 2% 1 applic TOPICAL DAILY PRN 04/28/24 04/28/24 Oint] Nystatin 100,000 Unit/gm Powd 1 applic TOPICAL TID PRN 04/28/24 04/28/24 [Mycostatin Powder] Simethicone [Gas-X] 125 mg PO BID PRN 04/28/24 04/28/24 Allergies Allergy/AdvReac Type Severity Reaction Status Date / Time Sulfa (Sulfonamide Allergy Rash/Hives Verified 01/05/25 18:06 Antibiotics) levofloxacin [From Levaquin] AdvReac Leg pain Verified 01/05/25 18:06 Review of Systems ROS Statement: Those systems with pertinent positive or pertinent negative responses have been documented in the HPI. ROS Other: All systems not noted in ROS Statement are negative. Past Medical History Past Medical History: CVA/TIA, Hypertension Additional Past Medical History / Comment(s): "mini strokes" History of Any Multi-Drug Resistant Organisms: None Reported Past Surgical History: Tubal Ligation Past Anesthesia/Blood Transfusion Reactions: No Reported Reaction Past Psychological History: Anxiety Smoking Status: Former smoker Past Alcohol Use History: None Reported Past Drug Use History: None Reported - Past Family History Mother Family Medical History: Hyperlipidemia, Hypertension Father Family Medical History: Renal Disease Additional Family Medical History / Comment(s): dialysis General Exam - General Exam Comments Initial Comments: GENERAL: Patient is well-developed and well-nourished. Patient is nontoxic and well- hydrated and is in mild distress. ENT: Neck is soft and supple. No significant lymphadenopathy is noted. Oropharynx is clear. Moist mucous membranes. Neck has full range of motion without eliciting any pain. EYES: The sclera were anicteric and conjunctiva were pink and moist. Extraocular movements were intact and pupils were equal round and reactive to light. Eyelids were unremarkable. PULMONARY: Unlabored respirations. Good breath sounds bilaterally. No audible rales rhonchi or wheezing was noted. CARDIOVASCULAR: There is a regular rate and rhythm without any murmurs gallops or rubs. ABDOMEN: Soft and nontender with normal bowel sounds. SKIN: Skin is clear with no lesions or rashes and otherwise unremarkable. NEUROLOGIC: Patient is alert and oriented x3. Cranial nerves II through XII are grossly intact. Motor and sensory are also intact. Normal speech, volume and content. Symmetrical smile. MUSCULOSKELETAL: Normal extremities with adequate strength and full range of motion. LYMPHATICS: No significant lymphadenopathy is noted PSYCHIATRIC: Normal psychiatric evaluation. Limitations: no limitations Course Vital Signs 01/05/25 01/05/25 01/05/25 17:59 18:37 19:30 Temperature 97.5 F L Pulse Rate 96 95 Respiratory 20 20 18 Rate Blood Pressure 176/78 176/91 O2 Sat by Pulse 98 98 Oximetry Medical Decision Making - Medical Decision Making EKG is interpreted by myself. EKG shows sinus rhythm at 94 bpm TX interval is 153 QRS is 95 QT interval is 343 QTc is 395. Patient EKG shows no ST segment elevation or depression. Was pt. sent in by a medical professional or institution (GRANT Kennedy, [employer], urgent care, hospital, or shelter...) When possible be specific @ -No Did you speak to anyone other than the patient for history (EMS, parent, family, police, friend...)? What history was obtained from this source @ -No Did you review nursing and triage notes (agree or disagree)? Why? @ -I reviewed and agree with nursing and triage notes Were old charts reviewed (outside hosp., previous admission, EMS record, old EKG , old radiological studies, urgent care reports/EKG's, shelter records)? Report findings @ -No old charts were reviewed Differential Diagnosis? @ -Differential Dyspnea: Coronary syndrome, arrhythmia, tamponade, asthma, COPD, pulmonary embolism, pneumonia, pneumothorax, pulmonary effusion, anaphylaxis, diabetic ketoacidosis, flailed chest, pulmonary contusion, diaphragmatic rupture, anemia, neuromuscular, this is not meant to be an all-inclusive list. EKG interpreted by me (3pts min.). @ -As above X-rays interpreted by me (1pt min.). @ -Chest x-ray shows no acute dramality CT interpreted by me (1pt min.). @ -None done U/S interpreted by me (1pt. min.). @ -None done What testing was considered but not performed or refused? (CT, X-rays, U/S, labs)? Why? @ -None What meds were considered but not given or refused? Why? @ -None Did you discuss the management of the patient with other professionals (professionals i.e. GRANT Kennedy, [employer], lab, RT, psych nurse, health social work professor, palliative care nurse, teacher, senior commercial loan officer, manager case management)? Give summary @ -No Was smoking cessation discussed for >3mins.? @ -No Was critical care preformed (if so, how long)? @ -No Were there social determinants of health that impacted care today? How? (Homelessness, low income, unemployed, alcoholism, drug addiction, transp ortation, low edu. Level, literacy, decrease access to med. care, senior care, rehab)? @ -No Was there de-escalation of care discussed even if they declined (Discuss DNR or withdrawal of care, Hospice)? DNR status @ -No What co-morbidities impacted this encounter? (DM, HTN, Smoking, COPD, CAD, Cancer, CVA, ARF, Chemo, Hep., AIDS, mental health diagnosis, sleep apnea, morbid obesity)? @ -None Was patient admitted / discharged? Hospital course, mention meds given and route, prescriptions, significant lab abnormalities, going to OR and other pertinent info. @ -I went back and reevaluated the patient and suggested she stay overnight and she was comfortable going home and did not want to stay show she requested to be discharged. I explained to her that it could still be her heart and she stated that she thinks is more likely her anxiety and wanted to go home. Patient will be discharged home Undiagnosed new problem with uncertain prognosis? @ -No Drug Therapy requiring intensive monitoring for toxicity (Heparin, Nitro, Insulin, Cardizem)? @ -No Were any procedures done? @ -No Diagnosis/symptom? @ -Dyspnea Acute, or Chronic, or Acute on Chronic? @ -Acute Uncomplicated (without systemic symptoms) or Complicated (systemic symptoms)? @ -Complicated Side effects of treatment? @ -No Exacerbation, Progression, or Severe Exacerbation? @ -No Poses a threat to life or bodily function? How? (Chest pain, [place], [place], pneumonia, PE, COPD, DKA, ARF, appy, cholecystitis, CVA, Diverticulitis, Homicidal, Blue icidal, threat to staff... and all critical care pts) @ -No - Lab Data Result diagrams: 01/05/25 18:55 01/05/25 18:55 Lab Results 01/05/25 01/05/25 01/05/25 Range/Units 18:55 18:55 18:55 WBC 12.38 H (4.50-10.00) 10*3/uL RBC 4.07 L (4.10-5.20) 10*6/uL Hgb 12.0 (12.0-15.0) g/dL Hct 35.1 L (37.2-46.3) % MCV 86.2 (80.0-97.0) fL MCH 29.5 (27.0-32.0) pg MCHC 34.2 (32.0-37.0) g/dL Plt Count 314 (140-440) 10*3/uL MPV 9.0 L (9.5-12.2) fL Immature Gran % (Auto) 0.2 % Neutrophils % 82.9 % Lymphocytes % 3.7 % Monocytes % 4.4 % Eosinophils % 8.6 % Basophils % 0.2 % Immature Gran # 0.02 (0.00-0.04) 10*3/uL Neutrophils # 10.27 H (1.80-7.70) 10*3/uL Lymphocytes # 0.46 L (0.90-5.00) 10*3/uL Monocytes # 0.54 (0.20-1.00) 10*3/uL Eosinophils # 1.06 H (0.04-0.35) 10*3/uL Basophils # 0.03 (0.00-0.10) 10*3/uL PT 10.8 (10.0-12.5) sec INR 1.0 (<1.2) APTT 23.5 (22.0-30.0) sec D-Dimer 0.70 H (<0.60) mg/L FEU Sodium 131 L (137-145) mmol/L Potassium 3.7 (3.5-5.1) mmol/L Chloride 100 (98-107) mmol/L Carbon Dioxide 19 L (22-30) mmol/L Anion Gap 12 mmol/L BUN 15 (7-17) mg/dL Creatinine 0.81 (0.52-1.04) mg/dL Est GFR (CKD-EPI)AfAm 79 (>60 ml/min/1.73 sqM) Est GFR (CKD-EPI)NonAf 68 (>60 ml/min/1.73 sqM) Glucose 206 H (74-99) mg/dL Plasma Lactic Acid Yimi (0.7-2.0) mmol/L Calcium 9.5 (8.4-10.2) mg/dL Magnesium 1.9 (1.6-2.3) mg/dL Total Bilirubin 0.8 (0.2-1.3) mg/dL AST 16 (14-36) U/L ALT 15 (4-34) U/L Alkaline Phosphatase 87 (38-126) U/L Troponin I (0.000-0.034) ng/mL NT-Pro-B Natriuret Pep 688 pg/mL Total Protein 6.5 (6.3-8.2) g/dL Albumin 4.0 (3.5-5.0) g/dL 01/05/25 01/05/25 Range/Units 18:55 18:55 WBC (4.50-10.00) 10*3/uL RBC (4.10-5.20) 10*6/uL Hgb (12.0-15.0) g/dL Hct (37.2-46.3) % MCV (80.0-97.0) fL MCH (27.0-32.0) pg MCHC (32.0-37.0) g/dL Plt Count (140-440) 10*3/uL MPV (9.5-12.2) fL Immature Gran % (Auto) % Neutrophils % % Lymphocytes % % Monocytes % % Eosinophils % % Basophils % % Immature Gran # (0.00-0.04) 10*3/uL Neutrophils # (1.80-7.70) 10*3/uL Lymphocytes # (0.90-5.00) 10*3/uL Monocytes # (0.20-1.00) 10*3/uL Eosinophils # (0.04-0.35) 10*3/uL Basophils # (0.00-0.10) 10*3/uL PT (10.0-12.5) sec INR (<1.2) APTT (22.0-30.0) sec D-Dimer (<0.60) mg/L FEU Sodium (137-145) mmol/L Potassium (3.5-5.1) mmol/L Chloride (98-107) mmol/L Carbon Dioxide (22-30) mmol/L Anion Gap mmol/L BUN (7-17) mg/dL Creatinine (0.52-1.04) mg/dL Est GFR (CKD-EPI)AfAm (>60 ml/min/1.73 sqM) Est GFR (CKD-EPI)NonAf (>60 ml/min/1.73 sqM) Glucose (74-99) mg/dL Plasma Lactic Acid Yimi 1.7 (0.7-2.0) mmol/L Calcium (8.4-10.2) mg/dL Magnesium (1.6-2.3) mg/dL Total Bilirubin (0.2-1.3) mg/dL AST (14-36) U/L ALT (4-34) U/L Alkaline Phosphatase (38-126) U/L Troponin I <0.012 (0.000-0.034) ng/mL NT-Pro-B Natriuret Pep pg/mL Total Protein (6.3-8.2) g/dL Albumin (3.5-5.0) g/dL Disposition Clinical Impression: Dyspnea, Chest pain, Anxiety Disposition: HOME SELF-CARE Instructions (If sedation given, give patient instructions): Dyspnea (ED), Chest Pain (ED) Is patient prescribed a controlled substance at d/c from ED?: No Referrals: Bruce Pompa MD [Primary Care Provider] - 1-2 days Time of Disposition: 20:26
[2025-01-05 19:20] LABS: ALT 15 U/L (4-34); AST 16 U/L (14-36); African American GFR (CKD) 79 (>60 ml/min/1.73 sqM); Alkaline Phosphatase 87 U/L (38-126); Anion Gap 12 mmol/L; Blood Urea Nitrogen 15 mg/dL (7-17); Calcium 9.5 mg/dL (8.4-10.2); Carbon Dioxide 19 mmol/L (22-30); Chloride 100 mmol/L (98-107); Glucose 206 mg/dL (74-99); Magnesium 1.9 mg/dL (1.6-2.3); Non-African American GFR(CKD) 68 (>60 ml/min/1.73 sqM); Potassium 3.7 mmol/L (3.5-5.1); Sodium 131 mmol/L (137-145); Total Bilirubin 0.8 mg/dL (0.2-1.3); Total Protein 6.5 g/dL (6.3-8.2)
[2025-01-05 19:21] LABS: Partial Thromboplastin Time 23.5 sec (22.0-30.0); Prothrombin Time 10.8 sec (10.0-12.5)
[2025-01-05 19:28] LABS: NT-Pro-B-Type Natriuretic Pept 688 pg/mL
[2025-01-05 19:31] VITALS: RESP 18
[2025-01-05] MEDS: ALPRAZolam 0.25 MG TAB PO STA (20:49)
[2025-01-05 20:55] VITALS: BP 146/80; PULSE 90
== END 2025-01-05 21:23 | disposition home or self-care (01) ==
LOC: EC 17:58
DX: R06.00 Dyspnea, unspecified (principal); F41.9 Anxiety disorder, unspecified; R07.9 Chest pain, unspecified; Z87.891 Personal history of nicotine dependence; Z88.2 Allergy status to sulfonamides; Z88.1 Allergy status to other antibiotic agents
CPT/HCPCS: 36415; 71046; 80053; 83605; 83735; 83880; 84484; 85025; 85379; 85610; 85730; 93005; 99285